=== PATIENT | female | born 1960 | race Caucasian/White ===

== ENCOUNTER 2017-07-05 09:11 | Day surgery (SDC) | payer OTHER ==
[2017-07-05] MEDS ORDERED: MIDAZOLAM 1 MG/ML 2 ML INJ ×2 (11:03)
[2017-07-05] MEDS ORDERED: FENTAnyl 50 MCG/ML VIAL (11:04)
== END 2017-07-05 11:21 | disposition home or self-care (01) ==
LOC: GIL 09:11
DX: Z12.11 Encounter for screening for malignant neoplasm of colon (principal); K44.9 Diaphragmatic hernia without obstruction or gangrene; K21.9 Gastro-esophageal reflux disease without esophagitis; K29.70 Gastritis, unspecified, without bleeding; K64.8 Other hemorrhoids; I10 Essential (primary) hypertension
CPT/HCPCS: 43239; 87081

== ENCOUNTER 2017-10-19 13:44 | Emergency (ER) | payer OTHER ==
[2017-10-19] MEDS: METOCLOPRAMIDE 10 MG TAB PO (15:34)
[2017-10-19] MEDS: MECLIZINE 12.5 MG TAB PO (15:34)
[2017-10-19 15:35] LABS: URINE PH (Dip) POC 6.5 (5.0-8.5)
[2017-10-19 15:35] LABS: URINE BLOOD (Dip) POC Negative (NEGATIVE); URINE GLUCOSE (Dip) POC Negative (NEGATIVE); URINE KETONES (Dip) POC Negative (NEGATIVE); URINE LEUKOCYTE EST (Dip) POC 1+ (NEGATIVE); URINE NITRITE (Dip) POC Negative (NEGATIVE); URINE TOTAL PROTEIN POC Negative (NEGATIVE)
[2017-10-19 15:43] LABS: ADD MAN DIFF? NO
[2017-10-19 15:48] LABS: BASOPHIL # 0.1 10^3/ul (0.0-0.1); BASOPHILS % 0.7 % (0.0-2.0); EOSINOPHILS # 0.3 10^3/ul (0.0-0.5); HEMATOCRIT 34.4 % (37.0-47.0); HEMOGLOBIN 12.1 g/dl (12.0-16.0); LYMPHOCYTES # 1.7 10^3/ul (0.8-2.9); MEAN CORPUSCULAR HEMOGLOBIN 31.8 pg (29.0-33.0); MEAN CORPUSCULAR HGB CONC 35.2 g/dl (32.0-37.0); MEAN CORPUSCULAR VOLUME 90.3 fl (82.0-101.0); MONOCYTE # 0.5 10^3/ul (0.3-0.9); MONOCYTES % 7.5 % (0.0-11.0); NEUTROPHIL # 4.2 10^3/ul (1.6-7.5); NEUTROPHILS % 62.2 % (39.0-77.0); PLATELET COUNT 298 10^3/UL (140-415); RED BLOOD COUNT 3.81 10^6/ul (4.20-5.40); RED CELL DISTRIBUTION WIDTH 11.1 % (11.5-14.5)
[2017-10-19 15:48] LABS: WHITE BLOOD COUNT 6.8 10^3/ul (4.8-10.8)
[2017-10-19 16:07] LABS: ANION GAP 14 (8-16); BLOOD UREA NITROGEN 21 mg/dl (7-20); CALCIUM 9.9 mg/dl (8.4-10.2); CARBON DIOXIDE 25 mmol/L (21-31); CHLORIDE 110 mmol/L (97-110); CREATININE 0.73 mg/dl (0.44-1.00); GLUCOSE 114 mg/dl (70-220); POTASSIUM 4.4 mmol/L (3.5-5.1); SODIUM 145 mmol/L (135-144)
== END 2017-10-19 17:49 | disposition home or self-care (01) ==
LOC: FTE 13:44
DX: R42 Dizziness and giddiness (principal); I10 Essential (primary) hypertension
CPT/HCPCS: 36415; 70450; 80048; 81003; 85025; 99284-25

== ENCOUNTER 2017-10-27 21:52 | Emergency (ER) | payer OTHER ==
[2017-10-28] MEDS: KETOROLAC 15 MG INJ IM (01:45)
== END 2017-10-28 02:07 | disposition home or self-care (01) ==
LOC: FTE 21:52
DX: M25.50 Pain in unspecified joint (principal); R40.2412 Glasgow coma scale score 13-15, at arrival to emergency department; I10 Essential (primary) hypertension; Z76.0 Encounter for issue of repeat prescription
CPT/HCPCS: 96372; 99284-25

== ENCOUNTER 2018-02-16 09:36 | Emergency (ER) | payer OTHER ==
[2018-02-16] MEDS: traMADol 50 MG TAB PO (10:22)
== END 2018-02-16 11:15 | disposition home or self-care (01) ==
LOC: FTE 09:36
DX: M19.90 Unspecified osteoarthritis, unspecified site (principal); I10 Essential (primary) hypertension
CPT/HCPCS: 99283; Z7502